=== PATIENT | female | born 1995 | race African-American/Black ===

== ENCOUNTER 2021-11-13 08:15 | Emergency (ER) | payer OTHER ==
[~2021-11-13] VITALS: Ht 160 cm; Wt 63.5 kg
[2021-11-13 08:15] VITALS: BP 110/73
--- NOTE | 2021-11-13 08:30 | NUR ---
26YO FEMALE PT BIBA FROM [facility]. PER [facility], [facility] STATES PT WAS UNRESPONSIVE AND LAYING ACROSS BACK SEAT. [facility] STATES PT WAS UNAROUSABLE TO FIRST ATTEMPTS OF WAKING HER UP. UPON ARRIVAL PT AAOX4 AND STATES SHE "TOOK 3 SHOTS" , DENIES DRUG CONSUMPTION. PT DENIES N/V/D, CHEST PAIN OR SOB. PT AMBULATORY WITH STEADY GAIT. PT AWAKE AND SPEAKING IN FULL SENTENCES. NO VISIBLE DISTRESS, RESPIRATIONS EVEN AND UNLABORED. PT ON MONITOR NKA NHX
--- NOTE | 2021-11-13 08:34 | NUR ---
Sha wallace in [facility] - 11/13/21 at 0841 by [email or web address] PATIENT LEFT WITHOUT BEING SEEN BY DR. PATTERSON. NO FURTHER CARE PROVIDED FOR PATIENT.
--- NOTE | 2021-11-13 08:39 | NUR ---
PT AMBULATED WITH STEADY GAIT TO RESTROOM. PT STATED SHE DIDNT WANT TO BE SEEN BY [facility]MD. PT REPORTS SISTER IS PICKING HER UP. A/O X4.
--- NOTE | 2021-11-13 08:40 | NUR ---
PATIENT LEFT WITHOUT BEING SEEN BY DR. PATTERSON. NO FURTHER CARE PROVIDED FOR PATIENT
== END 2021-11-13 08:40 | disposition left against medical advice (07) ==
LOC: MED 08:15
DX: R41.82 Altered mental status, unspecified (principal); Z53.21 Procedure and treatment not carried out due to patient leaving prior to being seen by health care provider